=== PATIENT | male | born 1985 | race Caucasian/White ===

== ENCOUNTER 2021-02-07 11:30 | Emergency (ER) | payer OTHER ==
[~2021-02-07] VITALS: Ht 167.6 cm; Wt 81.6 kg
[2021-02-07 11:33] VITALS: BP 151/112
--- NOTE | 2021-02-07 12:00 | NUR ---
35 Y/O M BIB AMB FOR ETOH INTOXICATION, [facility] AND PT WAS FOUND BY PD AND EMS, NON COMPLIANT, DENIES ANY MED HX, MEDS, OR ALLERGIES. REFUSES TO ANSWER ANY QUESTIONS. PT STATES "I JUST WANT SOMETHING TO EAT". LUNCH TRAY WAS ORDERED AND GIVEN TO PT, PT REQUESTED MORE FOOD AND WAS GIVEN SANDWICH. PMH: DENIES ALLERGY: DENIES MED: DENIES
--- NOTE | 2021-02-07 13:30 | NUR ---
Pt awake yelling for a blanket. Pt provided with meal tray and warm blanket. Pt placed in a position of comfort to eat his lunch. Pt asking "why am I at the hospital?" Pt has been re-oriented to why he was brought. Pt then responds "Oh I remember you."
--- NOTE | 2021-02-07 13:33 | NUR ---
Patient being evaluated by WOJCIECH Dyer at bedside.
--- NOTE | 2021-02-07 14:25 | NUR ---
Note undone in EDM - 02/07/21 at 1425 by [facility] 35 Y/O M BIB AMB FOR ETOH INTOXICATION, [facility] AND PT WAS FOUND BY PD AND EMS, NON COMPLIANT, DENIES ANY MED HX, MEDS, OR ALLERGIES. REFUSES TO ANSWER ANY QUESTIONS. PT STATES "I JUST WANT SOMETHING TO EAT". LUNCH TRAY WAS ORDERED AND GIVEN TO PT, PT REQUESTED MORE FOOD AND WAS GIVEN SANDWICH. PMH: DENIES ALLERGY: DENIES MED: DENIES
--- NOTE | 2021-02-07 14:25 | NUR ---
PT BUS PASS WAS OBTAINED FROM [employer]ATOR AND GIVEN TO PT.
--- NOTE | 2021-02-07 14:47 | NUR ---
PT LEFT WITH BUS PASS REFUSING TO SIGN DISCHARGE PAPERWORK.
[2021-02-07 14:48] VITALS: BP 154/128
== END 2021-02-07 14:40 | disposition home or self-care (01) ==
LOC: MED 11:30
DX: F10.129 Alcohol abuse with intoxication, unspecified (principal); I10 Essential (primary) hypertension
CPT/HCPCS: 99281

== ENCOUNTER 2021-06-15 19:26 | Emergency (ER) | payer OTHER ==
[~2021-06-15] VITALS: Ht 185.4 cm; Wt 83.9 kg
[2021-06-15 19:26] VITALS: BP 128/80
--- NOTE | 2021-06-15 19:30 | NUR ---
RECEIVED IN BED 2 AFTER BEING BIBA FROM STREETS WITH C/O ETOH INTOXICATION. PER EMS PD SAW PATIENT "PASSED OUT" IN STREET AND CALLED 911. MEDFlakitaX: ISHA STALEY Addendum: 06/15/21 at 2045 by YISSEL PT DOZING OFF AND ON WITH EYES CLOSED. STRONG SMELL OF ETOH, SPEECH SLIGHTLY GARBLED Addendum: 06/16/21 at 0300 by YISSEL Amendment undone in EDM - 06/16/21 at 0301 by YISSEL PT STATES HE WAS ON THE FLOOR FOR "ABOUT 12 HOURS"
[2021-06-15] MEDS ORDERED: NACL 0.9% 1,000 ML IV ONE (19:50)
[2021-06-15 20:23] LABS: BASOPHILS % (AUTO) 0.7 % (0.0-2.0); EOSINOPHILS # (AUTO) 0.1 K/uL (0-0.4); EOSINOPHILS % (AUTO) 3.7 % (0.0-4.0); HEMATOCRIT 34.7 % (36-52); HEMOGLOBIN 11.4 g/dL (12.0-18.0); LYMPHOCYTES # (AUTO) 1.1 K/uL (2.0-11.5); LYMPHOCYTES % (AUTO) 48.1 % (20.5-51.1); MEAN CORPUSCULAR HEMOGLOBIN 32 pg (27-31); MEAN CORPUSCULAR HGB CONC 33 g/dL (33-37); MEAN CORPUSCULAR VOLUME 97.9 fL (80-94); MONOCYTES # (AUTO) 0.3 K/uL (0.8-1.0); MONOCYTES % (AUTO) 12.2 % (1.7-9.3); NEUTROPHILS # (AUTO) 0.8 K/uL (1.8-7.7); NEUTROPHILS % (AUTO) 35.3 % (42.2-75.2); PLATELET COUNT (AUTO) 147 K/uL (140-450); RED BLOOD CELL COUNT(AUTO) 3.55 MIL/uL (4.20-6.10); RED CELL DISTRIBUTION WIDTH 15.9 % (11.6-13.7); WHITE BLOOD COUNT (AUTO) 2.3 K/uL (4.8-10.8)
--- NOTE | 2021-06-15 20:40 | NUR ---
TO CT VIA [facility]
[2021-06-15 21:02] LABS: ALBUMIN 3.2 g/dL (3.4-5.0); ANION GAP 16.6 (8-16); ASPARTATE AMINOTRANSFERASE 40 U/L (15-37); CARBON DIOXIDE 24.7 mmol/L (21-32); CHLORIDE 106 mmol/L (98-107); CREATININE 0.8 mg/dL (0.6-1.3); GFR ARICAN-AMERICAN 139 mL/min (>90); GLUCOSE 128 mg/dL (74-106); POTASSIUM 3.3 mmol/L (3.5-5.1); SODIUM SERUM 144 mmol/L (136-145); TOTAL BILIRUBIN 0.1 mg/dL (0.0-1.0); UREA NITROGEN, BLOOD 11 mg/dL (7-18)
[2021-06-15 21:03] LABS: ACETAMINOPHEN < 0.5 ug/ml (10-30); SALICYLATE < 2.8 mg/dL (2.8-20.0)
--- NOTE | 2021-06-16 | NUR ---
RESTING IN BED WITH EYES CLOSED. RESPIRATIONS REGULAR AND UNLABORED
--- NOTE | 2021-06-16 02:59 | NUR ---
CONTINUES TO REST COMFORTABLY WITH EYES CLOSED. RESPIRATIONS ARE REGULAR AND UNLABORED, SNORING AT TIMES.
--- NOTE | 2021-06-16 05:35 | NUR ---
PATIENT RESPONSIVE TO VERBAL STIMULI. PATIENT ABLE TO STAND WITH STEADY GAIT.
--- NOTE | 2021-06-16 05:37 | NUR ---
AWAKE NOW, ASKING FOR URINAL. RETURNS READILY TO RESTING WITH EYES CLOSED.
--- NOTE | 2021-06-16 07:25 | NUR ---
PT WALKED OUT OF ER AT THIS TIME.
--- NOTE | 2021-06-16 07:25 | NUR ---
PT GOT UP FROM BED AND LEFT FACILITY WITHOUT NOTIFYING STAFF. WHEN PT INFORMED THAT HE STILL NEEDS TO WAIT FOR DISCHARGE, PT SHAKED HEAD LEFT. PT AMBULATES WITH EVEN AND STEADY GAIT. ERMD AWARE PT ELOPED
[2021-06-16 07:27] VITALS: BP 124/68
== END 2021-06-16 07:25 | disposition left against medical advice (07) ==
LOC: MED 19:26
DX: F10.129 Alcohol abuse with intoxication, unspecified (principal); R41.82 Altered mental status, unspecified; R94.31 Abnormal electrocardiogram [ECG] [EKG]
CPT/HCPCS: 36415; 70450; 80053; 82550; 85025; 93005; 96360; 99285; G0480; J7030

== ENCOUNTER 2021-06-21 14:30 | Emergency (ER) | payer OTHER ==
[~2021-06-21] VITALS: Ht 185.4 cm; Wt 86.2 kg
--- NOTE | 2021-06-21 14:30 | NUR ---
PT BROUGHT TO BED 6 VIA IRENA HERNANDEZ
[2021-06-21 14:36] VITALS: BP 138/88
[2021-06-21] MEDS ORDERED: MULTIVITAMIN-12 10 ML, THIAMINE 100 MG, MAGNESIUM SULFATE 50% 2,000 MG, FOLIC ACID 1 MG... IV STA ×5 (14:36)
--- NOTE | 2021-06-21 15:00 | NUR ---
36/M biba with c/o ETOH. Per EMS patient was picked up from [facility], found lying on the ground next to several empty beer bottles. No reports of trauma or injury. Upon arrival, patient states heavy alcohol use today. Denies pain or any other c/o at this time. Placed in gown on bedside potline monitor.
[2021-06-21] MEDS: NACL 0.9% 1,000 ML IV ONE (15:08)
[2021-06-21] MEDS: MULTIVITAMIN-12 10 ML, THIAMINE 100 MG, MAGNESIUM SULFATE 50% 2,000 MG, FOLIC ACID 1 MG... IV SCH ×5 (15:29)
--- NOTE | 2021-06-21 16:30 | NUR ---
Patient pulled IV out, took off monitor leads stating "where are my shoes, I want to leave." Dr. Sheldno made aware, spoke with patient, patient still insisting on leaving. Per Dr. Sheldon patient okay to be discharged.
--- NOTE | 2021-06-21 16:50 | NUR ---
Patient discharged. Written and verbal after care instructions given and explained. Patient verbalized understanding. Ambulatory with steady gait. All questions addressed prior to discharge. Advised to follow up with PMD.
== END 2021-06-21 16:50 | disposition home or self-care (01) ==
LOC: MED 14:30
DX: F10.129 Alcohol abuse with intoxication, unspecified (principal); Y90.9 Presence of alcohol in blood, level not specified
CPT/HCPCS: 96365; 99284; A9153; J3411; J3475; J3490; J7030

== ENCOUNTER 2021-07-27 21:14 | Emergency (ER) | payer OTHER ==
[~2021-07-27] VITALS: Ht 182.9 cm; Wt 88.5 kg
[2021-07-27 21:24] VITALS: BP 114/68
--- NOTE | 2021-07-27 21:50 | NUR ---
PT BROUGHT TO BED 9 VIA TARYN HERNANDEZ
--- NOTE | 2021-07-27 21:55 | NUR ---
RECEIVED IN BED 9 BIBA FOR ETOH. FOUND LAYING ON FLOOR IN [place]. PT IS DISHEVELED AND PUNGENT.
--- NOTE | 2021-07-27 23:10 | NUR ---
RESTING IN BED WITH EYES CLOSED. RESPIRATIONS REGULAR AND UNLABORED
--- NOTE | 2021-07-28 02:00 | NUR ---
RESTING WITH EYES CLOSED AND SNORING RESPIRATIONS. AWAKENS SLIGHTLY WHEN VS TAKEN THEN RETURNS TO RESTING WITH EYES CLOSED
--- NOTE | 2021-07-28 05:29 | NUR ---
AMBULATED TO BR
--- NOTE | 2021-07-28 05:45 | NUR ---
HAS RETURNED TO BED , RETURNS TO RESTING WITH EYES CLOSED
--- NOTE | 2021-07-28 07:27 | NUR ---
report received from RANDAL Norwood for continuation of care
[2021-07-28 08:11] VITALS: BP 128/74
--- NOTE | 2021-07-28 08:11 | NUR ---
Patient discharged with v/s stable. Written and verbal after care instructions given and explained. Patient verbalized understanding. Ambulatory with steady gait. All questions addressed prior to discharge. Advised to follow up with PMD.
== END 2021-07-28 08:11 | disposition home or self-care (01) ==
LOC: MED 21:14
DX: F10.129 Alcohol abuse with intoxication, unspecified (principal)
CPT/HCPCS: 99285

== ENCOUNTER 2021-07-29 14:33 | Emergency (ER) | payer OTHER ==
[~2021-07-29] VITALS: Ht 177.8 cm; Wt 79.4 kg
--- NOTE | 2021-07-29 14:33 | NUR ---
PT TAKEN TO ER BED 12.
[2021-07-29 14:37] VITALS: BP 141/62
--- NOTE | 2021-07-29 15:00 | NUR ---
36 Y/O MALE BIBA DUE TO ETOH AND AMS. PER EMS PT WAS FOUND SITTING IN A LAUNDRY MAT AND WAS DROOLING LEANING OVER IN THE CHAIR. PT IS CURRENTLY SLURRING WORDS AND UNABLE TO ANSWER QUESTIONS. ORIENTED TO NAME, AWAKE RESTING IN BED. PMH: PREVIOUS TBI/CRANIOTOMY PER RECORDS ALLERGIES: DENIES HOME MEDS: NONE TAKING
--- NOTE | 2021-07-29 15:10 | NUR ---
LABS DRAWN AND TAKEN TO LABORATORY
--- NOTE | 2021-07-29 15:15 | NUR ---
PT TAKEN TO CT BY RADIOLOGY
[2021-07-29] MEDS: ONDANSETRON 4 MG/2 ML VIAL IVP ONE (15:17)
[2021-07-29] MEDS: FAMOTIDINE 20 MG/2 ML VIAL IVP ONE (15:18)
[2021-07-29] MEDS: NACL 0.9% 1,000 ML IV ONE (15:19)
[2021-07-29 15:23] LABS: BASOPHILS # (AUTO) 0.1 K/uL (0.00-0.22); BASOPHILS % (AUTO) 2.7 % (0.0-2.0); EOSINOPHILS # (AUTO) 0.1 K/uL (0-0.4); EOSINOPHILS % (AUTO) 2.1 % (0.0-4.0); HEMATOCRIT 36.6 % (36-52); HEMOGLOBIN 11.9 g/dL (12.0-18.0); LYMPHOCYTES # (AUTO) 1.5 K/uL (2.0-11.5); LYMPHOCYTES % (AUTO) 38.9 % (20.5-51.1); MEAN CORPUSCULAR HEMOGLOBIN 31 pg (27-31); MEAN CORPUSCULAR HGB CONC 32 g/dL (33-37); MONOCYTES # (AUTO) 0.5 K/uL (0.8-1.0); MONOCYTES % (AUTO) 13.6 % (1.7-9.3); NEUTROPHILS # (AUTO) 1.6 K/uL (1.8-7.7); NEUTROPHILS % (AUTO) 42.7 % (42.2-75.2); PLATELET COUNT (AUTO) 284 K/uL (140-450); RED BLOOD CELL COUNT(AUTO) 3.85 MIL/uL (4.20-6.10); RED CELL DISTRIBUTION WIDTH 15.1 % (11.6-13.7); WHITE BLOOD COUNT (AUTO) 3.7 K/uL (4.8-10.8)
--- NOTE | 2021-07-29 15:28 | NUR ---
PT RETURNED FROM CT IN [facility]
[2021-07-29 15:39] LABS: ALBUMIN 3.4 g/dL (3.4-5.0); ANION GAP 14.5 (8-16); CREATININE 0.9 mg/dL (0.6-1.3); POTASSIUM 3.5 mmol/L (3.5-5.1); TOTAL BILIRUBIN 0.2 mg/dL (0.0-1.0)
--- NOTE | 2021-07-29 17:57 | NUR ---
PT RESTING IN BED, PER ERMD, OK TO EAT. PT GIVEN DINNER. ALL NEEDS MET
--- NOTE | 2021-07-29 18:00 | NUR ---
PT WALKING AROUND UNIT AND REMOVED IV. PT RETURNED BACK TO BED, ERMD MADE AWARE. NNO AT THIS TIME
--- NOTE | 2021-07-29 19:31 | NUR ---
REPORT RECEIVED FROM RANDAL CRUZ FOR CONTINUITY OF PATIENT CARE AT THIS TIME.
--- NOTE | 2021-07-29 19:33 | NUR ---
Pt report given to BUDDY TEE. Transfer of care at this time.
--- NOTE | 2021-07-29 19:38 | NUR ---
PATIENT APPEARS TO BE RESTING W EYES CLOSED BLANKET ON, SUPINE POSITION, HOB SLIGHTLY ELEVATED. BED LOCKED IN LOWEST POSITION W X2 SIDERAILS UP FOR PATIENT SAFETY. BREATHING EVEN AND UNLABORED, VSS. NAD NOTED, WILL CONTINUE TO MONITOR.
--- NOTE | 2021-07-29 22:29 | NUR ---
PATIENT REQUESTED BLANKET. PATIENT DENIES ANY PAIN. PATIENT PROVIDED W A BLANKET. PATIENT LAYING IN BED LOCKED IN LOWEST POSITION W X2 SIDERAILS UP. BREATHING EVEN AND UNLABORED. NAD NOTED, WILL CONTINUE TO MONITOR.
--- NOTE | 2021-07-30 00:27 | NUR ---
PATIENT APPEARS TO BE RESTING W EYES CLOSED. PATIENT LAYING IN BED LOCKED IN LOWEST POSITION W X2 SIDERAILS UP FOR SAFETY. BREATHING EVEN AND UNLABORED. NAD NOTED, WILL CONTINUE TO MONITOR.
--- NOTE | 2021-07-30 01:58 | NUR ---
PATIENT AMBULATED TO BATHROOM W STEADY GAIT.
--- NOTE | 2021-07-30 02:10 | NUR ---
PATIENT BP 179/139 HR 115, ERMD AWARE OF PT VITALS.
--- NOTE | 2021-07-30 03:03 | NUR ---
PATIENT APPEARS TO BE RESTING W EYES CLOSED. PATIENT LAYING IN BED IN R LATERAL POSITION BED LOCKED IN LOWEST POSITION W X2 SIDERAILS UP FOR SAFETY. BREATHING EVEN AND UNLABORED. NAD NOTED, WILL CONTINUE TO MONITOR. VSS ON MONITOR.
--- NOTE | 2021-07-30 05:08 | NUR ---
PATIENT PROVIDED W CLEAN SHIRT AND A BUS PASS AND FOOD.
[2021-07-30 05:09] VITALS: BP 157/99
== END 2021-07-30 05:09 | disposition home or self-care (01) ==
LOC: MED 14:33
DX: F10.129 Alcohol abuse with intoxication, unspecified (principal); R41.82 Altered mental status, unspecified; R47.81 Slurred speech
CPT/HCPCS: 36415; 70450; 80053; 85025; 96361; 96374; 96375; 99285; G0482; J2405; J3490; J7030

== ENCOUNTER 2021-08-16 20:59 | Emergency (ER) | payer OTHER ==
[~2021-08-16] VITALS: Ht 172.7 cm; Wt 81.6 kg
[2021-08-16 20:59] VITALS: BP 122/69
--- NOTE | 2021-08-16 20:59 | NUR ---
TO BED VIA GURNEY , BROUGHT IN BY AMBULANCE, ETOH
--- NOTE | 2021-08-16 21:06 | NUR ---
Peter nava in ED - 08/16/21 at 2108 by ANABEL PT NYDIA BLS. TAKEN TO BED 3
--- NOTE | 2021-08-16 21:08 | NUR ---
REC'D IN BED 3, NYDIA FROM [facility]. CAROLYN FLORES CALLED 911 AFTER FINDING PT WITH ETOH, LAYING ON FLOOR. PT IS AWAKE, ANSWERING QUESTIONS AND STATES HAS BEEN CONTINUOUSLY DRINKING ALCOHOL. PT IS HOMELESS AND DISHEVELED PMH :ETOH NKDA
--- NOTE | 2021-08-17 | NUR ---
RESTING IN BED WITH EYES CLOSED, RESPIRATIONS REGULAR AND UNLABORED
--- NOTE | 2021-08-17 01:15 | NUR ---
PT AMBULATE WITHOUT ASSISTANCE TO ER BATHROOM
--- NOTE | 2021-08-17 02:14 | NUR ---
Note brandy in EDM - 08/17/[address] [facility] Patient discharged with v/s stable. Written and verbal after care instructions given and explained. Patient verbalized understanding. Ambulatory with steady gait. All questions addressed prior to discharge. Advised to follow up with PMD.
[2021-08-17 05:00] VITALS: BP 118/72
== END 2021-08-17 05:48 | disposition home or self-care (01) ==
LOC: MED 20:59
DX: F10.129 Alcohol abuse with intoxication, unspecified (principal); R41.82 Altered mental status, unspecified; Z98.890 Other specified postprocedural states; Z59.00 Homelessness unspecified
CPT/HCPCS: 99283

== ENCOUNTER 2021-08-22 17:50 | Emergency (ER) | payer OTHER ==
[~2021-08-22] VITALS: Ht 175.3 cm; Wt 65.8 kg
[2021-08-22 17:53] VITALS: BP 114/64
--- NOTE | 2021-08-22 17:59 | NUR ---
PT LWBS AT THIS TIME
== END 2021-08-22 17:59 | disposition left against medical advice (07) ==
LOC: MED 17:50
DX: M79.641 Pain in right hand (principal); F10.10 Alcohol abuse, uncomplicated; Z53.21 Procedure and treatment not carried out due to patient leaving prior to being seen by health care provider